=== PATIENT | male | born 1945 | race Caucasian/White ===

== ENCOUNTER → 2016-08-22 | Outpatient (CLI) | payer MEDICARE, BC ==
[~2016-08-22] MED LIST: ACETAMINOPHEN PO; ALBUTEROL MININEB NEB; ALBUTEROL17 GM INH; AZITHROMYCIN500 MG PO; CYPROHEPTADINE H4 MG PO; FLONASE 0.05% N16 GM; GLIPIZIDE10 MG PO; GLUCOVANCE 5/501 TA3 PO; JANUVIA PO; JANUVIA100 MG PO; LISINOPRIL20 MG PO; METFORMIN HCL1000 M1 PO; OXYGEN INH; PERIACTIN4 M1 DOB; PIOGLITAZONE30 MG PO; PREDNISONE PO; PROAIR HFA8.5 GM IH; SPIRIVA18 MCG INH; SYMBICORT 16010.2 GM INH; SYMBICORT INH; VERAMYST10 GM NS
--- NOTE | ~2016-08-22 | CT57 ---
[facility] A Service of [facility] & [facility] RADIOLOGY TEXT RESULTS PATIENT: KATY KIM JR LOCATION: [facility] : 41 UNIT #: [id number] AGE: [address]: Saran Raygoza MD SEX: M ORDER DR: [id number] [facility] [address] [place], [place] [address] [id number] MR#: [id number] Acc #: [id number] NAME: KATY KIM : 1945 SEX: M STUDY DATE/TIME: 08/22/2016 10:29 UNIT: [facility] ROOM: STUDY DESCRIPTION: CT Chest Wo Cont Attending Physician: Saran Raygoza M.D. Referring Physician: Saran Raygoza M.D. Ordering Physician: Saran Raygoza M.D. Primary Care Physician: Yo Hyde M.D. MEDICAL IMAGING REPORT This report is preliminary unless electronic signature is present EXAM CT chest INDICATIONS Bilateral pulmonary nodules. Restaging. Emphysema. TECHNIQUE CT of the thorax without contrast. Coronal and sagittal reconstructions were obtained. This CT exam was performed with one or more of the following radiation dose reduction techniques: automatic exposure control, adjustment of mA and/or kV according to patient size, and iterative reconstruction. COMPARISON CT thorax dated 02/21/2016, 07/21/2015, 03/23/2015 and 11/16/2014 and 08/19/2014. FINDINGS A large bi-lobe pulmonary nodule in the right lower lobe measures up to 2.2 cm, compared to 2.7 cm on the 02/21/2016 exam. This area measured up to 3.5 cm in August 2014. A pulmonary nodule in the right upper lobe measures 0.8 x 0.6 cm compared to 0.9 x 0.6 cm. This nodule measured up to 1.6 cm in August 2014. There is background emphysema. 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 Central airways are patent. No pathologically enlarged mediastinal or hilar lymph nodes. Thoracic aorta is normal in caliber. Moderate coronary artery calcifications. No pericardial or pleural effusion. [facility] A Service of [facility] & [facility] RADIOLOGY TEXT RESULTS PATIENT: KATY KIM JR LOCATION: [facility] : 41 UNIT #: [id number] AGE: [address]: Saran Raygoza MD SEX: M ORDER DR: There is colonic diverticula and cholelithiasis seen in the upper abdomen. No acute osseous abnormalities. IMPRESSION 1. The bilateral pulmonary nodules are unchanged from the 02/21/2016 exam. The largest nodules have decreased in size when compared to the more remote 08/19/2014 exam. This strongly suggests benign etiology. 2. Emphysema. 3. Evidence of asbestos exposure. Dictated by... Edwin Barahona M.D. THIS IS AN ELECTRONICALLY VERIFIED REPORT Edwin Barahona M.D. at 08/22/2016 3:57 PM C/ronal TD: 08/22/2016 14:55 JOB #: [id number] MEDICAL IMAGING REPORT Page 1 of 1 COPY
== END | disposition home or self-care (01) ==
LOC: CCAT 09:43
DX: R91.8 Other nonspecific abnormal finding of lung field (principal); J43.9 Emphysema, unspecified; Z77.090 Contact with and (suspected) exposure to asbestos
CPT/HCPCS: 71250